=== PATIENT | female | born 1995 | race Caucasian/White ===

== ENCOUNTER 2021-07-26 10:32 | Outpatient (CLI) | payer OTHER ==
[2021-07-26] MEDS ORDERED: DEXTROSE 5%-LACTATED RINGERS 1,000 ML IV ONE (11:00)
[2021-07-26 11:13] LABS: Glucose,Whole Blood 126 mg/dL (75-99)
[2021-07-26 12:11] LABS: Basophils % (A) 0 %; Eosinophils # (A) 0.1 k/uL (0-0.7); Eosinophils % (A) 1 %; HCT 35.1 % (34.0-46.0); HGB 12.1 gm/dL (11.4-16.0); Lymphocytes # (A) 1.7 k/uL (1.0-4.8); Lymphocytes % (A) 15 %; MCHC 34.6 g/dL (31.0-37.0); MCV 89.6 fL (80.0-100.0); Mean Platelet Volume 8.3; Monocytes # (A) 0.4 k/uL (0-1.0); Monocytes % (A) 3 %; Neutrophils # (A) 9.2 k/uL (1.3-7.7); Neutrophils % (A) 80 %; Platelet Count 193 k/uL (150-450); RBC 3.91 m/uL (3.80-5.40); RDW 13.7 % (11.5-15.5); WBC 11.5 k/uL (3.8-10.6)
[2021-07-26 13:45] VITALS: BP 140/81; PULSE 107; RESP 16; TEMP 98.1
--- NOTE | 2021-08-01 07:48 | P.MSEPDOC ---
Presenting Problems - Arrival Data Date of Arrival on Unit: 07/26/21 Time of Arrival on Unit: 10:32 Mode of Transport: Ambulatory - Complaint OB-Reason for Admission/Chief Complaint: Syncope/Fainting Spell Comment: pt arrived c/o passing out at [facility] today pt got lighthedad and her friend lowered her to the floor Medical History - Information : 2 Para: 1 Term: 1 : 0 Abortions: Spontaneous or Elective: 0 Number of Living Children: 1 - Gestational Age Gestational Age by HELENA (wks/days): 22 Weeks and 3 Days Review of Systems - Review of Systems Constitutional: No problems Breast: No problems ENT: No problems Cardiovascular: No problems Respiratory: No problems Gastrointestinal: No problems Genitourinary: No problems Musculoskeletal: No problems Neurological: No problems Skin: No problems Vital Signs - Temperature Temperature: 98.1 F Temperature Source: Oral - Pulse Right Brachial Pulse Rate: 107 Pulse Assessment Method: Automatic Cuff - Respirations Respiratory Rate: 16 Oxygen Delivery Method: Room Air O2 Sat by Pulse Oximetry: 98 - Blood Pressure Right Arm Blood Pressure: 140/81 Blood Pressure Mean: 100 Blood Pressure Source: Automatic Cuff Medical Screen Scoring - Cervical Exam Membranes: Intact - Uterine Contractions Resting: Soft to palpation - Assessment - Baby A Baseline FHR: 140 Physician Notification - Physician Notified Physician Notified Date: 07/26/21 Physician Notified Time: 13:30 Physician: Dr Nuñez New Order Received: Yes - Notification Comment Comment: may discharge to home with instructions and have her keep her scheduled appoinment Maternal Triage Index - Maternal Triage Index Presenting for scheduled procedure w/no complaint: No - Stat/Priority 1 Stat Priority 1: No - Urgent/Priority 2 Urgent Priority 2: No - Prompt/Priority 3 Prompt Priority 3: No - Non-Urgent/Priority 4 Non-Urgent Priority 4: Yes Criteria Met for Priority 4: pt 22 3/7 weeks gestation. had a episode at [facility] where she passed out. B/P 140/81 PULSE 107 accuc check of 126 obtained. and cbc drawn and sent to lab and iv of d5lr started v/s retaken onB/P 116/[address] Nuñez called with cbc results and orders receive may discharge pt to home with instructions Disposition - Disposition OB Disposition: Physician follow up in office, Discharge to home Discharge Date: 07/26/21 Discharge Time: 13:35 I agree with the RN Medical Screening Exam: Yes Case reviewed; plan agreed upon as documented in EMR&OBIX.: Yes Comments: Patient was neither seen nor examined by me Diagnosis: PAIN, UNSPECIFIED
== END 2021-07-26 13:35 | disposition home or self-care (01) ==
LOC: FBPOP 10:32
PROVIDERS: ATTEND Obstetrics & Gynecology
DX: O26.892 Other specified pregnancy related conditions, second trimester (principal); R55 Syncope and collapse; Z3A.22 22 weeks gestation of pregnancy
CPT/HCPCS: 96360; 96361; 85025; G0463; 96367; 99214

== ENCOUNTER 2021-08-30 23:50 | Outpatient (CLI) | payer OTHER ==
[2021-08-31 00:46] VITALS: BP 124/67; PULSE 119; RESP 16; TEMP 97.7
--- NOTE | 2021-08-31 10:06 | P.PN ---
Progress Note - Text Progress Note Date: 08/30/21 this is a 26-year-old 2 para 1 woman who presented to labor and delivery triage at 27-4/7 weeks gestation complaining of 2 days of vaginal bleeding. She reports episodes of pink spotting over the last 48 hours. No flow of bright red blood. More recently this evening she had some darker brown old blood type discharge. She decided to come in for evaluation. She has had ongoing and unrelenting pelvic pain throughout the . She reports this is below her old scar at the level of the pubic bone. 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 She reports the pain has not increased or changed in nature in light of the spotting. She denies bowel or bladder symptoms. She's not had recent intercourse or trauma. 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 Throughout her evaluation on labor and delivery triage no active bleeding was noted. heart tones were reassuring for gestational age and she was not johny. I performed bedside exam. The abdomen is gravid, soft and nontender. She had no CVA tenderness. She is exquisitely tender over the pubic symphysis consistent with pubic symphysis separation. On speculum examination there is no blood in the vault. On bimanual examination the cervix is fingertip, firm, 30% effaced with no presenting part. There is no blood on the exam glove. Throughout her term evaluation there was no active bleeding noted. All of her vital signs are stable. She was therefore discharged home to pelvic rest and off of work until seen in follow-up in the office. labor and bleeding precautions were reviewed in detail. Greater than 30 minutes spent.
--- NOTE | 2021-08-31 10:07 | P.MSEPDOC ---
Presenting Problems - Arrival Data Date of Arrival on Unit: 08/30/21 Time of Arrival on Unit: 23:50 Mode of Transport: Wheelchair - Complaint OB-Reason for Admission/Chief Complaint: Vaginal Bleeding Comment: Patient presents to triage with complaints of bleding. Patient had mild. spotting 2 days ago and noticed brown tinged blood in underwear while at work today. Medical History - Information : 2 Para: 1 Term: 1 : 0 Abortions: Spontaneous or Elective: 0 Number of Living Children: 1 - Gestational Age Gestational Age by HELENA (wks/days): 27 Weeks and 4 Days - History Complications: Prior Review of Systems - Review of Systems Constitutional: No problems Breast: No problems ENT: No problems Cardiovascular: No problems Respiratory: No problems Gastrointestinal: No problems Genitourinary: No problems Musculoskeletal: No problems Neurological: No problems Skin: No problems Vital Signs - Temperature Temperature: 97.7 F Temperature Source: Oral - Pulse Brachial Pulse Rate: 119 Pulse Assessment Method: Automatic Cuff - Respirations Respiratory Rate: 16 Oxygen Delivery Method: Room Air - Blood Pressure Right Arm Blood Pressure: 124/67 Blood Pressure Mean: 86 Blood Pressure Source: Automatic Cuff Medical Screen Scoring - Cervical Exam Membranes: Intact - Assessment - Baby A Baseline FHR: 140 Heart Rate - NICHD Category: Category I (Normal) Physician Notification - Physician Notified Physician Notified Date: 08/31/21 Physician Notified Time: 00:11 Physician: Ivette Rowan Order Received: Yes (discharge) - Notification Comment Comment: Dr. Rowan at bedside for evaluation of patient. Maternal Triage Index - Maternal Triage Index Presenting for scheduled procedure w/no complaint: No - Stat/Priority 1 Stat Priority 1: No - Urgent/Priority 2 Urgent Priority 2: No - Prompt/Priority 3 Prompt Priority 3: No - Non-Urgent/Priority 4 Non-Urgent Priority 4: Yes Criteria Met for Priority 4: Patient presents to triage with complaints of bleding. Patient had mild. spotting 2 days ago and noticed brown tinged blood in underwear while at work today. Disposition - Disposition OB Disposition: Discharge to home Discharge Date: 08/31/21 Discharge Time: 00:22 I agree with the RN Medical Screening Exam: Yes Case reviewed; plan agreed upon as documented in EMR&OBIX.: Yes Comments: see dictated progress note regarding exam, assessment and plan Diagnosis: vaginal bleeding at 27 weeks
== END 2021-08-31 00:22 ==
LOC: FBPOP 23:50
PROVIDERS: ATTEND Obstetrics & Gynecology
DX: O46.92 Antepartum hemorrhage, unspecified, second trimester (principal); Z3A.27 27 weeks gestation of pregnancy; Z88.1 Allergy status to other antibiotic agents
CPT/HCPCS: 99213

== ENCOUNTER 2021-10-02 11:54 | Outpatient (CLI) | payer OTHER ==
[2021-10-02 12:52] LABS: Appearance,Urine Cloudy (Clear); Bacteria,Urine Rare /hpf; Bilirubin,Urine Negative (Negative); Blood,Urine Negative (Negative); Color,Urine Yellow; Glucose,Urine (UA) Negative (Negative); Ketones,Urine Trace (Negative); Leukocyte Esterase,Urine Negative (Negative); Mucus,Urine Moderate /hpf; Nitrite,Urine Negative (Negative); Protein,Urine 1+ (Negative); RBC,Urine 2 /hpf (0-5); Specific Gravity,Urine 1.029 (1.001-1.035); Squamous Epithelial Cell,Urine 3 /hpf (0-4); Urobilinogen,Urine <2.0 mg/dL (<2.0); WBC,Urine 2 /hpf (0-5)
[2021-10-02 13:46] VITALS: BP 117/68; PULSE 115; RESP 20; TEMP 98.1
--- NOTE | 2021-10-27 08:54 | P.MSEPDOC ---
Presenting Problems - Arrival Data Date of Arrival on Unit: 10/02/21 Time of Arrival on Unit: 12:04 Mode of Transport: Ambulatory - Complaint OB-Reason for Admission/Chief Complaint: Headache, Visual Disturbances Comment: pt arrived c/o a headache times 4 days. with c/o edema in feet and also c/o seeing spots Medical History - Information : 2 Para: 1 Term: 1 : 0 Abortions: Spontaneous or Elective: 0 Number of Living Children: 1 - Gestational Age Gestational Age by HELENA (wks/days): 32 Weeks and 1 Days Review of Systems - Review of Systems Constitutional: No problems Breast: No problems ENT: No problems Cardiovascular: No problems Respiratory: No problems Gastrointestinal: No problems Genitourinary: No problems Musculoskeletal: No problems Neurological: Dizziness Skin: No problems Vital Signs - Temperature Temperature: 98.1 F Temperature Source: Oral - Pulse Right Brachial Pulse Rate: 115 Pulse Assessment Method: Automatic Cuff - Respirations Respiratory Rate: 20 Oxygen Delivery Method: Room Air O2 Sat by Pulse Oximetry: 98 - Blood Pressure Right Arm Blood Pressure: 117/68 Blood Pressure Mean: 84 Blood Pressure Source: Automatic Cuff Medical Screen Scoring - Assessment - Baby A Baseline FHR: 150 Heart Rate - NICHD Category: Category I (Normal) Physician Notification - Physician Notified Physician Notified Date: 10/02/21 Physician Notified Time: 12:55 Physician: dr moses New Order Received: Yes - Notification Comment Comment: may discharge to home with instructions and have pt f/u with dr moses next week. pt needs to call and make appoinment Maternal Triage Index - Non-Urgent/Priority 4 Non-Urgent Priority 4: Yes Criteria Met for Priority 4: pt 32 1/7 weeks c/o h/a b/p 117/68 temp 98.1 pulse 115. reactive NST Disposition - Disposition OB Disposition: Physician follow up in office, Discharge to home Discharge Date: 10/02/21 Discharge Time: 13:15 I agree with the RN Medical Screening Exam: Yes Case reviewed; plan agreed upon as documented in EMR&OBIX.: Yes Diagnosis: HEADACHE * DO NOT USE *
== END 2021-10-02 13:15 | disposition home or self-care (01) ==
LOC: FBPOP 11:54
PROVIDERS: ATTEND Obstetrics & Gynecology
DX: O26.893 Other specified pregnancy related conditions, third trimester (principal); R60.0 Localized edema; R51.9 Headache, unspecified; Z3A.32 32 weeks gestation of pregnancy; Z88.1 Allergy status to other antibiotic agents
CPT/HCPCS: 59025; 81001; G0463; 99213

== ENCOUNTER 2021-10-15 20:17 | Outpatient (CLI) | payer OTHER ==
[2021-10-15 21:52] VITALS: BP 136/79; PULSE 108; RESP 18; TEMP 96.5
--- NOTE | 2021-11-12 17:04 | P.MSEPDOC ---
Presenting Problems - Arrival Data Date of Arrival on Unit: 10/15/21 Time of Arrival on Unit: 20:17 Mode of Transport: Ambulatory - Complaint OB-Reason for Admission/Chief Complaint: Rule Out SROM Medical History - Information : 2 Para: 1 Term: 1 : 0 Abortions: Spontaneous or Elective: 0 Number of Living Children: 1 - Gestational Age Gestational Age by HELENA (wks/days): 34 Weeks and 0 Days - History Complications: Prior Review of Systems - Review of Systems Constitutional: No problems Breast: No problems ENT: No problems Cardiovascular: No problems Respiratory: No problems Gastrointestinal: No problems Genitourinary: No problems Musculoskeletal: No problems Neurological: No problems Skin: No problems Vital Signs - Temperature Temperature: 96.5 F Temperature Source: Temporal Artery Scan - Pulse Pulse Oximetery Pulse Rate: 108 Pulse Assessment Method: Pulse Oximetry - Respirations Respiratory Rate: 18 Oxygen Delivery Method: Room Air O2 Sat by Pulse Oximetry: 99 - Blood Pressure Right Arm Supine Blood Pressure: 136/79 Blood Pressure Mean: 98 Blood Pressure Source: Automatic Cuff Medical Screen Scoring - Cervical Exam Dilation (cm): 1 Effacement (%): 50 Station: -3 Membranes: Intact - Uterine Contractions Intensity: Absent Resting: Soft to palpation - Assessment - Baby A Baseline FHR: 145 Heart Rate - NICHD Category: Category I (Normal) NST: Reactive Physician Notification - Physician Notified Physician Notified Date: 10/15/21 Physician Notified Time: 21:34 Physician: Kavon Garrett Order Received: Yes - Notification Comment Comment: Dr. Garrett notified of pt arrival to triage. RN reported on maternal VS, FHTs, amnisure results, and SVE. POC discussed at this time. Pt. okay to D/C home. Maternal Triage Index - Maternal Triage Index Presenting for scheduled procedure w/no complaint: No - Stat/Priority 1 Stat Priority 1: No - Urgent/Priority 2 Urgent Priority 2: No - Prompt/Priority 3 Prompt Priority 3: Yes Criteria Met for Priority 3: Pt with c/o SROM here at 34.0 weeks gestation Disposition - Disposition OB Disposition: Discharge to home Discharge Date: 10/15/21 Discharge Time: 21:45 I agree with the RN Medical Screening Exam: Yes Physician's MSE Comment: I have neither seen nor examined the patient. Case reviewed; plan agreed upon as documented in EMR&OBIX.: Yes Diagnosis: RELATED CONDITIONS, UNSPECIFIED, THIRD TRIMESTER
== END 2021-10-15 21:45 | disposition home or self-care (01) ==
LOC: FBPOP 20:17
PROVIDERS: ATTEND Obstetrics & Gynecology
DX: Z03.79 Encounter for other suspected maternal and fetal conditions ruled out (principal); Z88.1 Allergy status to other antibiotic agents
CPT/HCPCS: 59025; 84112; G0463; 99213

== ENCOUNTER 2021-11-03 09:59 | Inpatient (IN) | payer OTHER ==
[2021-11-03] MEDS ORDERED: LACTATED RINGERS 1,000 ML IV ONE (11:05)
[2021-11-03] MEDS ORDERED: CITRIC ACID-SODIUM CITRATE 15 ML CUP PO ONE (11:05)
[2021-11-03] MEDS ORDERED: LACTATED RINGERS 1,000 ML IV SCH (11:15)
--- NOTE | 2021-11-03 11:17 | P.HPOB ---
History of Present Illness H&P Date: 11/03/21 Chief Complaint: Decreased movement and back pain This is a 26-year-old 3 para 1011 woman with an estimated due date of 11/26/2021 based on first trimester ultrasound. She presents at 36-5/7 weeks gestation complaining of decreased movement for approximately 12 hours and increasing low back and abdominal pain. Upon evaluation in labor and delivery triage she has a category 1 heart rate tracing and does report feeling movement. She is however found to be johny regularly on the monitor and does describe low back pain worsening over the last 24 hours and wrapping around to the front. She describes increasing pelvic pressure. On examination she is found to be 3+ centimeters dilated, 70% effaced in the vertex in the -1 station. This is a change from recent exam in which she reported she was told she was 1 cm dilated. has been complicated by large for gestational age based on recent ultrasound. Estimated weight at 36 weeks was greater than the 90th percentile with an SANDRA of 28.8 cm. Previous was delivered by primary low transverse section in 2015 after a failed vacuum extraction. weighed 10 pounds. The patient reports that she was in the hospital for 6 days and did receive a blood transfusion intraoperatively for bleeding. The infant also had an undiagnosed cardiac defect and did require [facility]. This was in [place]. She has been previously counseled on in the office setting regarding options and does decline a trial of labor. She has been consented for a repeat low transverse section. Risks of the C- section are reviewed with the patient today and include bleeding, transfusion, infection, injury to maternal or infant, DVT, PE, implications for future pregnancies and/or anesthesia complications. The patient understands these risks and has been counseled previously in the office as well. Consent is obtained. Laboratory data: Blood type O+, antibody screen negative, rubella immune, VDRL nonreactive, hepatitis B surface antigen negative, gonorrhea and clinic cultures negative, HIV negative, glucose tolerance testing within normal limits. Review of Systems All systems: negative Past Medical History Additional Past Medical History / Comment(s): Migraine headaches History of Any Multi-Drug Resistant Organisms: None Reported Past Surgical History: Section (2016) Past Anesthesia/Blood Transfusion Reactions: No Reported Reaction Past Psychological History: No Psychological Hx Reported Smoking Status: Never smoker Past Alcohol Use History: None Reported Past Drug Use History: None Reported Medications and Allergies Home Medications Medication Instructions Recorded Confirmed Type Pedi Multivit No.25/Folic Acid 2 tab PO DAILY 07/26/21 11/03/21 History [Flintstones Multivit Chew Tab] Allergies Allergy/AdvReac Type Severity Reaction Status Date / Time amoxicillin Allergy Rash/Hives Verified 11/03/21 10:23 Exam Intake and Output 11/02/21 11/03/21 11/03/21 22:59 06:59 14:59 Other: Weight 127.006 kg This is a pleasant, visibly gravid female in no obvious distress. HEENT ENT exam is unremarkable. Her breathing is unlabored and her heart is a regular rate and rhythm. The abdomen is gravid with size significantly greater then stated gestational age. On pelvic examination she is 3+ centimeters dilated, 70% effaced vertex in the -1 station. She has 1+ bilateral lower extremity edema. heart tones are category 1. She is johny every 1- 4 minutes. Assessment and Plan (1) 36 to 37 weeks gestation of Current Visit: Yes Status: Acute Code(s): NXA8939 - SNOMED Code(s): 268709446 (2) History of Current Visit: Yes Status: Acute Code(s): Z98.891 - HISTORY OF UTERINE SCAR FROM PREVIOUS SURGERY SNOMED Code(s): 665258399 (3) Polyhydramnios Current Visit: Yes Status: Acute Code(s): O40.9XX0 - POLYHYDRAMNIOS, UNSP TRIMESTER, NOT APPLICABLE OR UNSP SNOMED Code(s): 38965172 (4) Spontaneous onset of labor Current Visit: Yes Status: Acute Code(s): ODE4114 - SNOMED Code(s): 28497577 Plan: 26-year-old 3 para 1011 woman who is admitted at 36-5/7 weeks gestation in early active labor. She has a history of a previous low transverse section and declines trial of labor. has been, located by large for gestational age estimated weight on recent ultrasound as well as polyhydramnios. She reports a history of hemorrhage with previous section 5 years ago. Risks benefits and alternatives of repeat have been reviewed with the patient in detail, please see the documented discussion above. Consent is obtained. The anesthesiologist has been notified as has the nursery. We'll proceed towards repeat low transverse section.
[2021-11-03] MEDS ORDERED: CLINDAMYCIN 900 MG in DEXTROSE 5% IN WATER 50 ML IVPB ONE ×2 (11:30)
[2021-11-03] MEDS ORDERED: GENTAMICIN 460 MG in SODIUM CHLORIDE 0.9% 100 ML IVPB ONE (11:30)
[2021-11-03 11:34] LABS: Basophils % (A) 0 %; Eosinophils # (A) 0.1 k/uL (0-0.7); Eosinophils % (A) 1 %; HCT 36.2 % (34.0-46.0); HGB 12.2 gm/dL (11.4-16.0); Lymphocytes # (A) 1.9 k/uL (1.0-4.8); Lymphocytes % (A) 17 %; MCH 29.1 pg (25.0-35.0); MCHC 33.7 g/dL (31.0-37.0); MCV 86.2 fL (80.0-100.0); Mean Platelet Volume 8.7; Monocytes # (A) 0.4 k/uL (0-1.0); Monocytes % (A) 4 %; Neutrophils # (A) 8.2 k/uL (1.3-7.7); Neutrophils % (A) 75 %; Platelet Count 186 k/uL (150-450); Poikilocytosis Slight; RDW 15.8 % (11.5-15.5)
[2021-11-03 12:38] LABS: INR 0.9 (<1.2); Prothrombin Time 10.1 sec (9.0-12.0)
[2021-11-03 12:43] LABS: Partial Thromboplastin Time 21.8 sec (22.0-30.0)
[2021-11-03] MEDS ORDERED: PHENYLEPHRINE-0.9% NACL SYG 1,000 MCG/10 ML SYRINGE ONE (12:43)
[2021-11-03] MEDS ORDERED: MORPHINE SULFATE (PF) 0.3 MG/0.3 ML SYR ONE (12:43)
[2021-11-03] MEDS ORDERED: KETOROLAC 15 MG/ML 1 ML VIAL ONE (12:43)
[2021-11-03] MEDS ORDERED: OXYTOCIN 30 UNITS/500 ML NS BAG IV ONE (12:43)
[2021-11-03] MEDS ORDERED: ONDANSETRON 4 MG/2 ML VIAL ONE (12:43)
[2021-11-03] MEDS ORDERED: DEXAMETHASONE SOD PHOSPHATE 4 MG/ML 1 ML VIAL ONE (12:43)
[2021-11-03] MEDS ORDERED: HYDROmorphone 1 MG/ML 1 ML SYRINGE IVP PRN (13:57)
[2021-11-03] MEDS ORDERED: diphenhydrAMINE 50 MG CAP PO PRN (13:57)
[2021-11-03] MEDS ORDERED: ONDANSETRON 4 MG/2 ML VIAL IVP PRN (13:57)
[2021-11-03] MEDS ORDERED: NALOXONE 0.4 MG/ML 1 ML VIAL IV PRN (13:57)
[2021-11-03] MEDS ORDERED: METOCLOPRAMIDE 5 MG/ML 2 ML VIAL IVP PRN (13:57)
[2021-11-03] MEDS ORDERED: diphenhydrAMINE 50 MG/ML 1 ML VIAL IVP PRN (13:57)
[2021-11-03] MEDS ORDERED: diphenhydrAMINE 25 MG CAP PO PRN (13:57)
[2021-11-03] MEDS ORDERED: ZOLPIDEM 5 MG TAB PO PRN (13:57)
--- NOTE | 2021-11-03 13:57 | P.OP ---
Date of Procedure: 11/03/21 Preoperative Diagnosis: Intrauterine at 36-5/7 weeks Spontaneous labor History of previous low transverse section Polyhydramnios Suspected large for gestational age infant Postoperative Diagnosis: Uterine at 36-5/7 weeks Spontaneous labor History of previous low transverse section Polyhydramnios LGA Intra-abdominal adhesions Procedure(s) Performed: repeat low transverse section Anesthesia: spinal Surgeon: Ivette Rowan Guillotine Operator #1: Alverto Menjivar Estimated Blood Loss (ml): 400 IV fluids (ml): 1,200 Urine output (ml): 400 Pathology: none sent Condition: stable Disposition: floor Indications for Procedure: 26-year-old 3 para 1011 woman who presented at 36-5/7 weeks gestation in spontaneous active labor. Should a history of a previous low transverse section and declines trial of labor. Operative Findings: Female in the vertex occiput transverse position with Apgars of 7 at 1 minute and 9 at 5 minutes weighing 8 lbs. 9 oz., 3890 g. Extensive intra- abdominal adhesions involving the omentum to the anterior of the uterus, the right ovary and fallopian tube to the posterior portion of the uterus and dense adhesions of the bladder to the low uterine segment. Description of Procedure: Patient was taken to the operating room where spinal anesthetic was administered without incident. Appropriate timeout procedure was undertaken. On she was positioned, prepped and draped in the dorsal supine position with a Dumont catheter in place. After anesthetic was confirmed adequate a low transverse skin incision was made and carried down to the underlying fascia sharply. The fascia was incised in the midline and extended bilaterally with the Villarreal scissors. The rectus muscles were densely adherent in the midline. Hemostats were utilized to elevate the rectus muscles in the midline and scalpel was utilized to enter the peritoneum. The peritoneum was entered and the incision was extended inferiorly and superiorly. There is noted to be omentum adherent to the entire right on fundal to midportion of the uterus. The bladder blade was placed and the vesicouterine peritoneum was identified. The bladder was noted to be densely adherent to the low uterine segment therefore the uterine incision was made well above this. The uterine incision was then carried down to the underlying membranes sharply. The membranes were ruptured and copious clear fluid was noted. The uterine incision was extended bilaterally bluntly. The head was delivered from the incision and the nose and mouth were bulb suctioned. The rest the was delivered onto the field and the nose and mouth were further bulb suctioned. The cord was clamped and cut and the infant was taken to the warmer. An intact, three-vessel cord placenta was then manually removed. The uterus was carefully removed from the abdomen and there is noted to be extensive heart scarring of the right adnexa to the posterior portion of the right uterus. The omentum was noted to be very adherent to the right fundal and right midportion of the uterus as well. The uterine incision was delineated with George's after the uterus was cleared of all clot and debris. The uterine incision was closed in a running 5 locked fashion with 0 Vicryl suture followed by second imbricating layer of the same. There was noted to be active bleeding from a venous sinus essentially at the dome of the bladder where it was adherent to the low uterine segment. This was very carefully exposed the bleeding was felt to be superficial venous sinus. 3-0 Vicryl suture was utilized to very carefully place [id number] sutures 2 in this area and hemostasis was noted. The entire area was vascular. Surgicel powder was then placed over the entire low uterine segment and dome of the bladder. Hemostasis was noted. The uterus had been returned to the abdomen prior to this. The gutters were cleared of all clot and debris on the left side the right side was not secondary to adhesions. The peritoneum was then reapproximated in the midline with 2-0 Vicryl suture. The rectus muscles and fascial edges and p eritoneal edges had been inspected and are noted to be hemostatic. The fascia was then closed in a running fashion with 0 Vicryl suture. The subcuticular tissue is irrigated and reapproximated with 3-0 chromic. The skin was then closed in a subcutaneous fashion with 4-0 Vicryl suture. All counts reported to me as correct by the operating room staff. Dumont catheter is in place and copious clear urine is noted in the tubing at the end of the procedure. The patient was transported recovery area in good condition.
[2021-11-03] MEDS ORDERED: OXYTOCIN 30 UNITS/500 ML NS 30 UNIT in SALINE 1 500ML.BAG IV SCH (14:00)
[2021-11-03] MEDS: diphenhydrAMINE 50 MG/ML 1 ML VIAL IVP PRN ×2 (14:27→20:15)
[2021-11-03] MEDS: LACTATED RINGERS 1,000 ML IV SCH ×2 (14:28→23:44)
[2021-11-03] MEDS: ACETAMINOPHEN TAB 500 MG TAB PO SCH (20:14)
[2021-11-03] MEDS: SENNOSIDES-DOCUSATE SODIUM 1 EACH TAB PO SCH (20:15)
[2021-11-03] MEDS: IBUPROFEN 600 MG TAB PO SCH ×2 (20:38→23:44)
[2021-11-04] MEDS ORDERED: IBUPROFEN IV 800 MG in SODIUM CHLORIDE 0.9% 250 ML IV PRN ×2
[2021-11-04] MEDS: ACETAMINOPHEN TAB 500 MG TAB PO SCH ×4 (01:41→19:35)
[2021-11-04] MEDS: IBUPROFEN 600 MG TAB PO SCH ×4 (06:06→23:38)
[2021-11-04] MEDS: LACTATED RINGERS 1,000 ML IV SCH ×2 (06:07→16:51)
[2021-11-04 06:18] LABS: Basophils % (A) 0 %; Eosinophils # (A) 0.1 k/uL (0-0.7); Eosinophils % (A) 1 %; HCT 32.1 % (34.0-46.0); Lymphocytes # (A) 2.7 k/uL (1.0-4.8); Lymphocytes % (A) 18 %; MCH 29.7 pg (25.0-35.0); MCHC 34.3 g/dL (31.0-37.0); MCV 86.8 fL (80.0-100.0); Mean Platelet Volume 8.9; Monocytes % (A) 7 %; Neutrophils # (A) 11.2 k/uL (1.3-7.7); Neutrophils % (A) 73 %; Platelet Count 188 k/uL (150-450); Poikilocytosis Slight; RDW 15.4 % (11.5-15.5); WBC 15.2 k/uL (3.8-10.6)
[2021-11-04] MEDS: SENNOSIDES-DOCUSATE SODIUM 1 EACH TAB PO SCH ×2 (09:00→20:16)
--- NOTE | 2021-11-04 10:17 | P.PNOBGPC ---
Subjective - Subjective Principal diagnosis: Postop day 1 Interval history: Feeling well. Dumont catheter remained in overnight secondary to concerns for bleeding and scarring at the dome of the bladder intraoperatively. Clear urine is noted. is in the nursery with a elevated white blood cell count. Patient reports: Reports appetite normal, Reports pain well controlled, Reports ambulating normally, Denies dizzy ambulation, Denies nauseated [place]: doing well, other (Nursery) Objective - Vital Signs Latest vital signs: Vital Signs Temp Pulse Resp BP Pulse Ox 11/04/21 08:00 97.5 F L 103 H 16 106/71 99 11/04/21 04:00 98.0 F 75 16 136/88 11/03/21 23:48 98.3 F 97 16 128/75 11/03/21 20:00 98.0 F 112 H 16 109/67 11/03/21 15:56 90 16 112/55 96 11/03/21 15:26 100 16 111/56 96 11/03/21 14:56 107 H 16 110/58 98 11/03/21 14:41 101 H 16 107/58 95 11/03/21 14:26 90 16 107/57 98 11/03/21 14:11 95 16 102/52 98 11/03/21 13:56 97.8 F 94 16 90/45 97 11/03/21 11:15 97.5 F L 126 H 16 126/74 98 Intake and Output 11/03/21 11/04/21 11/04/21 22:59 06:59 14:59 Output Total 350 1300 500 Balance -350 -1300 -500 Output: Urine 350 1300 500 Other: Voiding Method Indwelling Catheter Indwelling Catheter - Exam Extremities: Present: normal, edema Abdomen: Present: normal appearance, soft. Absent: distention, tenderness Incision: Present: normal, dry, intact, dressed Uterus: Present: normal, firm. Absent: tenderness - Labs Labs: Abnormal Lab Results - Last 24 Hours (Table) 11/03/21 11/03/21 11/04/21 Range/Units 11:15 11:28 05:56 WBC 11.0 H 15.2 H (3.8-10.6) k/uL RBC 3.70 L (3.80-5.40) m/uL Hgb 11.0 L (11.4-16.0) gm/dL Hct 32.1 L (34.0-46.0) % RDW 15.8 H (11.5-15.5) % Neutrophils # 8.2 H 11.2 H (1.3-7.7) k/uL APTT 21.8 L (22.0-30.0) sec Assessment and Plan (1) 36 to 37 weeks gestation of Current Visit: Yes Status: Acute Code(s): [id number] - SNOMED Code(s): 861730892 (2) History of Current Visit: Yes Status: Acute Code(s): Z98.891 - HISTORY OF UTERINE SCAR FROM PREVIOUS SURGERY SNOMED Code(s): 818382217 (3) Polyhydramnios Current Visit: Yes Status: Acute Code(s): O40.9XX0 - POLYHYDRAMNIOS, UNSP TRIMESTER, NOT APPLICABLE OR UNSP SNOMED Code(s): 92535556 (4) Spontaneous onset of labor Current Visit: Yes Status: Acute Code(s): RVE6290 - SNOMED Code(s): 39937242 Plan: Postop day 1 status post repeat low transverse section. We'll discontinue Dumont catheter to day. Increase ambulation and routine care otherwise.
--- NOTE | 2021-11-04 15:35 | P.PN ---
Progress Note - Text 11/04/21 722 76-year-old female status post with spinal Duramorph. Patient seen and evaluated this morning for postop pain control, patient has a VAS of 1 with no complains of nausea vomiting. Patient does have complaints of pruritus which should subside in 24 hours.
[2021-11-05] MEDS: ACETAMINOPHEN TAB 500 MG TAB PO SCH ×4 (02:03→22:27)
[2021-11-05] MEDS: IBUPROFEN 600 MG TAB PO SCH ×4 (05:32→19:44)
--- NOTE | 2021-11-05 08:26 | P.PNOBGPC ---
Subjective - Subjective Principal diagnosis: Postop day 2 Interval history: Patient is seen well in the nursery visiting the baby. Baby is being monitored for elevated white blood cell count and receiving antibiotic therapy. Cultures are pending. Patient reports: Reports appetite normal, Reports voiding normally, Reports pain well controlled, Reports ambulating normally, Denies dizzy ambulation [place]: doing well Objective - Vital Signs Latest vital signs: Vital Signs Temp Pulse Resp BP Pulse Ox 11/05/21 00:00 98.1 F 89 16 129/78 11/04/21 16:00 97.5 F L 104 H 16 132/77 97 11/04/21 13:00 97.5 F L 96 16 107/69 98 Intake and Output 11/04/21 11/05/21 11/05/21 22:59 06:59 14:59 Other: # Voids 1 2 Assessment and Plan (1) 36 to 37 weeks gestation of Current Visit: Yes Status: Acute Code(s): IUR8286 - SNOMED Code(s): 045649857 (2) History of Current Visit: Yes Status: Acute Code(s): Z98.891 - HISTORY OF UTERINE SCAR FROM PREVIOUS SURGERY SNOMED Code(s): 208758277 (3) Polyhydramnios Current Visit: Yes Status: Acute Code(s): O40.9XX0 - POLYHYDRAMNIOS, UNSP TRIMESTER, NOT APPLICABLE OR UNSP SNOMED Code(s): 39452811 (4) Spontaneous onset of labor Current Visit: Yes Status: Acute Code(s): UDR9233 - SNOMED Code(s): 27470075 Plan: Postop day 2 status post repeat low transverse section. Patient is not examined today as she is in the nursery visiting the baby. Patient reports incision is well-healing and lochia was scant. Anticipate possible discharge home tomorrow pending physical exam evaluation.
[2021-11-05] MEDS: SENNOSIDES-DOCUSATE SODIUM 1 EACH TAB PO SCH ×2 (09:49→19:45)
[2021-11-06] MEDS: SIMETHICONE 80 MG CHEWABLE PO PRN ×4 (00:54→19:14)
[2021-11-06] MEDS: IBUPROFEN 600 MG TAB PO SCH ×4 (04:36→19:11)
[2021-11-06] MEDS: ACETAMINOPHEN TAB 500 MG TAB PO SCH ×5 (08:20→22:16)
--- NOTE | 2021-11-06 08:22 | P.PNOBGPC ---
Subjective - Subjective Principal diagnosis: Postop day 3 Interval history: Feeling well. Complaining of gas pain. She has had multiple bowel movements since delivery. Patient reports: Reports appetite normal, Reports voiding normally, Reports pain well controlled, Reports ambulating normally, Denies dizzy ambulation, Denies nauseated : other (In special care nursery, jaundice) Objective - Vital Signs Latest vital signs: Vital Signs Temp Pulse Resp BP 11/06/21 00:00 97.1 F L 90 16 134/82 11/05/21 16:00 98.1 F 98 16 130/74 Intake and Output 11/05/21 11/06/21 11/06/21 22:59 06:59 14:59 Other: # Voids 1 2 - Exam Extremities: Present: edema Abdomen: Present: normal appearance, soft, distention Incision: Present: normal, dry, intact. Absent: erythematous Uterus: Present: normal, firm. Absent: tenderness Assessment and Plan (1) 36 to 37 weeks gestation of Current Visit: Yes Status: Acute Code(s): [id number] - SNOMED Code(s): 248409596 (2) History of Current Visit: Yes Status: Acute Code(s): Z98.891 - HISTORY OF UTERINE SCAR FROM PREVIOUS SURGERY SNOMED Code(s): 718192490 (3) Polyhydramnios Current Visit: Yes Status: Acute Code(s): O40.9XX0 - POLYHYDRAMNIOS, UNSP TRIMESTER, NOT APPLICABLE OR UNSP SNOMED Code(s): 60656854 (4) Spontaneous onset of labor Current Visit: Yes Status: Acute Code(s): ZKG6737 - SNOMED Code(s): 01533989 Plan: Postop day 3 status post repeat low transverse section. Infant remains in special care nursery. Probable discharge home tomorrow.
[2021-11-06] MEDS: SENNOSIDES-DOCUSATE SODIUM 1 EACH TAB PO SCH ×2 (08:58→20:20)
[2021-11-07 01:49] VITALS: RESP 16
[2021-11-07] MEDS: SIMETHICONE 80 MG CHEWABLE PO PRN (02:36)
[2021-11-07] MEDS: IBUPROFEN 600 MG TAB PO SCH ×3 (02:36→16:27)
[2021-11-07] MEDS: ACETAMINOPHEN TAB 500 MG TAB PO SCH ×2 (06:15→13:08)
[2021-11-07 08:59] VITALS: BP 138/79; PULSE 94; TEMP 98.2
[2021-11-07] MEDS: SENNOSIDES-DOCUSATE SODIUM 1 EACH TAB PO SCH (10:27)
== END 2021-11-07 16:00 | disposition home or self-care (01) | DRG 786 ==
LOC: FBPOP 09:59 → 4FBP 10:57
PROVIDERS: ADMIT Obstetrics & Gynecology; ATTEND Obstetrics & Gynecology
PROC: 4A0HXCZ Measurement of Products of Conception, Cardiac Rate, External Approach (ICD-10-PCS; 2021-11-03)
PROC: 10D00Z1 Extraction of Products of Conception, Low, Open Approach (ICD-10-PCS; principal; 2021-11-03 13:00)
DX: O34.211 Maternal care for low transverse scar from previous cesarean delivery (principal); O60.14X0 Preterm labor third trimester with preterm delivery third trimester, not applicable or unspecified; O99.354 Diseases of the nervous system complicating childbirth; O36.63X0 Maternal care for excessive fetal growth, third trimester, not applicable or unspecified; O99.892 Other specified diseases and conditions complicating childbirth; G43.909 Migraine, unspecified, not intractable, without status migrainosus; O40.3XX0 Polyhydramnios, third trimester, not applicable or unspecified; N73.6 Female pelvic peritoneal adhesions (postinfective); O36.8130 Decreased fetal movements, third trimester, not applicable or unspecified; Z37.0 Single live birth; Z3A.37 37 weeks gestation of pregnancy; Z88.1 Allergy status to other antibiotic agents
CPT/HCPCS: 59025; 83036; 85025; 85610; 85730; 86850; 86900; 86901; 99213

== ENCOUNTER 2022-10-21 09:27 | Emergency (ER) | payer OTHER ==
[2022-10-21 09:49] VITALS: BP 133/89; PULSE 107; RESP 20; TEMP 98.4
--- NOTE | 2022-10-21 09:50 | ED ---
Eye Problem HPI - General Stated complaint: [place] [facility] Time Seen by Provider: 10/21/22 09:48 Source: patient Mode of arrival: ambulatory Limitations: no limitations - History of Present Illness Initial comments: 27-year-old female presents emergency Department chief complaint left eye irritation. Patient states started overnight. Patient states that she had some old eyedrops from her Lasix and which she uses. She states that seemed to help some. Patient states that she did get some drainage on the left eye. No visual disturbance. Patient had prior Lasix. Patient denies any foreign body sensation. - Related Data Home Medications Medication Instructions Recorded Confirmed Pedi Multivit No.25/Folic Acid 2 tab PO DAILY 07/26/21 11/03/21 [Flintstones Multivit Chew Tab] Previous Rx's Medication Instructions Recorded Tobramycin 0.3% Ophth Soln [Tobrex 1 drop LEFT EYE Q4H #5 ml 10/21/22 0.3% Ophth Soln] Allergies Allergy/AdvReac Type Severity Reaction Status Date / Time amoxicillin Allergy Rash/Hives Verified 10/21/22 09:49 Review of Systems ROS Statement: Those systems with pertinent positive or pertinent negative responses have been documented in the HPI. ROS Other: All systems not noted in ROS Statement are negative. Past Medical History Additional Past Medical History / Comment(s): Migraine headaches History of Any Multi-Drug Resistant Organisms: None Reported Past Surgical History: Section (2016) Past Anesthesia/Blood Transfusion Reactions: No Reported Reaction Past Psychological History: No Psychological Hx Reported Smoking Status: Never smoker Past Alcohol Use History: None Reported Past Drug Use History: None Reported General Exam Limitations: no limitations General appearance: alert, in no apparent distress Head exam: Present: atraumatic, normocephalic, normal inspection Eye exam: Present: PERRL, EOMI, conjunctival injection (Left mild drainage). Absent: normal appearance, scleral icterus, periorbital swelling ENT exam: Present: normal exam, normal oropharynx, mucous membranes moist Neck exam: Present: normal inspection, full ROM. Absent: tenderness, meningismus, lymphadenopathy Respiratory exam: Present: normal lung sounds bilaterally. Absent: respiratory distress, wheezes, rales, rhonchi, stridor Course Vital Signs 10/21/22 09:47 Temperature 98.4 F Pulse Rate 107 H Respiratory 20 Rate Blood Pressure 133/89 O2 Sat by Pulse 98 Oximetry Medical Decision Making - Medical Decision Making Was pt. sent in by a medical professional or institution? @ -no Did you speak to anyone other than the patient for history? @ -no Did you review nursing and triage notes? @ -agree and reviewed Were old charts reviewed? @ -no Differential Diagnosis? @ Conjunctivitis- viral, bacterial, ALLERGIC, foreign body, corneal abrasion, list is not all inclusive EKG interpreted by me (3pts min.)? @ -no X-rays interpreted by me (1pt min.)? @ -no CT interpreted by me (1pt min.)? @ -no U/S interpreted by me (1pt. min.)? @ -no What testing was considered but not performed? (CT, X-rays, U/S, labs)? Why? @ no What meds were considered but not given? Why? @ -no Did you discuss the management of the patient with other professionals? @ -no Did you reconcile home meds? @ -no Was smoking cessation discussed for >3mins.? @ -no Was critical care preformed (if so, how long)? @ -no Were there social determinants of health that impacted care today? How? (Homelessness, low income, unemployed, alcoholism, drug addiction, transportation, low edu. Level, literacy, decrease access to med. care, fci, rehab)? @ -no Was there de-escalation of care discussed even if they declined? (Discuss DNR or withdrawal of care, Hospice)? @ -no What co-morbidities impacted this encounter? (DM, HTN, Smoking, COPD, CAD, Cancer, CVA, Hep., AIDS, mental health diagnosis, sleep apnea, morbid obesity)? @ -no Was patient admitted / discharged? @ -Discharged Undiagnosed new problem with uncertain prognosis? @ -no Drug Therapy requiring intensive monitoring for toxicity (Heparin, Nitro, Insulin, Cardizem)? @ -no Were any procedures done? @ -no Diagnosis/symptom? @ -Conjunctivitis Acute, or Chronic, or Acute on Chronic? @ - acute Uncomplicated (without systemic symptoms) or Complicated (systemic symptoms)? @ -Uncomplicated Side effects of treatment? @ -None Exacerbation, Progression, or Severe Exacerbation] @ -no Poses a threat to life or bodily function? @ -no Disposition Clinical Impression: Conjunctivitis, left eye Disposition: HOME SELF-CARE Condition: Stable Instructions (If sedation given, give patient instructions): Conjunctivitis (ED) Additional Instructions: Please return to the Emergency Department if symptoms worsen or any other concerns. Prescriptions: Tobramycin 0.3% Ophth Soln [Tobrex 0.3% Ophth Soln] 1 drop LEFT EYE Q4H #5 ml Is patient prescribed a controlled substance at d/c from ED?: No Referrals: None,Stated [Primary Care Provider] - 1-2 days Time of Disposition: 09:48
== END 2022-10-21 09:56 | disposition home or self-care (01) ==
LOC: EC 09:27
DX: H10.32 Unspecified acute conjunctivitis, left eye (principal); Z88.0 Allergy status to penicillin
CPT/HCPCS: 99282

== ENCOUNTER → 2024-08-27 | Outpatient (CLI) | payer OTHER ==
[2024-08-27 15:17] LABS: Basophils # (A) 0.04 X 10*3/uL (0.00-0.10); Basophils % (A) 0.6 %; Eosinophils # (A) 0.07 X 10*3/uL (0.04-0.35); HCT 41.7 % (37.2-46.3); HGB 14.2 g/dL (12.0-15.0); Lymphocytes # (A) 2.36 X 10*3/uL (0.90-5.00); Lymphocytes % (A) 33.8 %; MCH 29.7 pg (27.0-32.0); MCHC 34.1 g/dL (32.0-37.0); MCV 87.2 FL (80.0-97.0); Mean Platelet Volume 10.6 FL (9.5-12.2); Monocytes # (A) 0.45 X 10*3/uL (0.20-1.00); Monocytes % (A) 6.4 %; NRBC Per 100 WBC 0 X 10*3/uL (0.00-0.01); Neutrophils # (A) 4.04 X 10*3/uL (1.80-7.70); Neutrophils % (A) 57.9 %; Platelet Count 274 X 10*3/uL (140-440); RBC 4.78 X 10*6/uL (4.10-5.20); RDW 12.1 % (11.5-14.5); WBC 6.98 X 10*3/uL (4.50-10.00)
[2024-08-27 15:35] LABS: ALT 25 U/L (8-44); AST 19 U/L (13-35)
== END | disposition home or self-care (01) ==
LOC: LABWHC1 08:34
PROVIDERS: ATTEND Nurse Practitioner
DX: D69.2 Other nonthrombocytopenic purpura (principal); D23.61 Other benign neoplasm of skin of right upper limb, including shoulder; L60.9 Nail disorder, unspecified
CPT/HCPCS: 36415; 84450; 84460; 85025